=== PATIENT | male | born 1945 | race Two or more races ===

== ENCOUNTER 2023-06-11 05:22 | Day surgery (SDC) | payer OTHER ==
[2023-06-05 16:30] VITALS: BMI 29.9
[2023-06-11 10:33] VITALS: TEMP 97.1
[2023-06-11 11:08] VITALS: BP 150/64; PULSE 55; RESP 19
== END 2023-06-11 11:15 | disposition home or self-care (01) ==
LOC: JASU-ENDO 05:22
PROVIDERS: ATTEND Student in an Organized Health Care Education/Training Program
PROC: 0DBM8ZX Excision of Descending Colon, Via Natural or Artificial Opening Endoscopic, Diagnostic (ICD-10-PCS; 2023-06-11)
PROC: 0DBH8ZX Excision of Cecum, Via Natural or Artificial Opening Endoscopic, Diagnostic (ICD-10-PCS; principal; 2023-06-11 12:30)
DX: Z12.11 Encounter for screening for malignant neoplasm of colon (principal); D12.0 Benign neoplasm of cecum; D12.4 Benign neoplasm of descending colon; K57.30 Diverticulosis of large intestine without perforation or abscess without bleeding
CPT/HCPCS: 88305-TC